=== PATIENT | female | born 1995 | race Caucasian/White ===

== ENCOUNTER → 2017-03-10 | Outpatient (CLI) | payer MEDICAID | LOC: CARD 08:46 | PROVIDERS: ATTEND Family Medicine | DX: G62.9 Polyneuropathy, unspecified (principal); G56.03 Carpal tunnel syndrome, bilateral upper limbs | CPT/HCPCS: 95886; 95911 ==

== ENCOUNTER → 2018-05-16 | Outpatient (CLI) | payer MEDICAID | END | disposition home or self-care (01) | LOC: CFH 09:09 | PROVIDERS: ATTEND Psychiatry & Neurology Neurology | DX: G62.9 Polyneuropathy, unspecified (principal) | CPT/HCPCS: 70551 ==

== ENCOUNTER 2019-08-02 09:41 | Outpatient (CLI) | payer MEDICAID | END 2019-08-02 23:59 | disposition home or self-care (01) | LOC: CFH 09:41 | PROVIDERS: ATTEND Neurological Surgery | DX: M51.36 Other intervertebral disc degeneration, lumbar region (principal); G95.89 Other specified diseases of spinal cord; M51.46 Schmorl's nodes, lumbar region | CPT/HCPCS: 72131 ==